=== PATIENT | female | born 1945 | race Caucasian/White ===

== ENCOUNTER 2016-09-02 16:02 | Outpatient (CLI) ==
--- NOTE | 2016-09-02 16:32 | DI ---
EXAM: Three views of the left shoulder HISTORY: Left shoulder pain. COMPARISON: Left humerus x-rays same day and Chest x-ray 08/27/2015 FINDINGS: The left shoulder demonstrates no cortical irregularity or displaced fracture. The glenoh umeral joint is unremarkable. There is degenerative change at the acromioclavicular joint. There i s no lytic or blastic lesion. The adjacent ribs are normal. Soft tissues are unremarkable. IMPRESSION: No acute abnormality or displaced fracture of the left shoulder with degenerative disea se of the acromioclavicular joint.
--- NOTE | 2016-09-02 16:33 | DI ---
EXAM: LEFT HUMERUS, 2 VIEWS HISTORY: Left arm paresthesia FINDINGS: Left humerus AP and lateral views. Bone and joint structures appear normal. No fracture or joint dislocation is seen. There is no significant arthritic change, bone density abnormality o r soft tissue finding. IMPRESSION: No distinct radiographic abnormality identified.
== END 2016-09-02 16:03 | disposition home or self-care (01) ==
LOC: RAD 16:02
PROVIDERS: ATTEND Internal Medicine
DX: M25.512 Pain in left shoulder (principal); S49.92XA Unspecified injury of left shoulder and upper arm, initial encounter

== ENCOUNTER 2017-04-21 08:19 | Outpatient (CLI) ==
--- NOTE | 2017-04-21 09:52 | US ---
EXAM: Abdominal ultrasound limited HISTORY: Increased ALT COMPARISON: Ultrasound 04/21/2017 TECHNIQUE: Sonographic and limited Doppler evaluation of the right upper quadrant was performed. FINDINGS: The liver is increased in echogenicity and measures 13.4 cm. The portal vein is patent. The gallbladder demonstrates no stones or sludge. The gallbladder wall measures 0.3 cm in thickness. Common bile duct is unremarkable and measures 0.4 cm in diameter. The pancreas is unremarkable in a ppearance. The right kidney measures 8.8 x 4.0 x 3.6 centimeters with cortical thickness of 0.7 cm. IMPRESSION: 1. Increased echogenicity of the liver which may represent hepatic steatosis. 2. No additional abnormality is identified.
--- NOTE | 2017-04-21 10:50 | US ---
EXAM: Ultrasound abdomen limited HISTORY: Increased ALT COMPARISON: None FINDINGS: Limited ultrasound abdomen of the spleen was performed. Spleen normal in size and echogen icity measuring 4.0 x 4.1 x 9.8 cm. Left kidney measures 8.9 cm in length without hydronephrosis. IMPRESSION: Normal sonographic appearance of the spleen.
== END 2017-04-21 08:20 | disposition home or self-care (01) ==
LOC: RAD 08:19
PROVIDERS: ATTEND Internal Medicine
DX: R74.0 Nonspecific elevation of levels of transaminase and lactic acid dehydrogenase [LDH] (principal)

== ENCOUNTER 2017-11-20 12:29 | Outpatient (CLI) | payer OTHER ==
--- NOTE | 2017-11-20 13:31 | CT ---
EXAM: CT of the lumbar spine without contrast History: Lower back pain. Technique: Multiplanar CT images through the lumbar spine were obtained without the administration o f IV contrast Findings: Atherosclerotic vascular calcifications. No acute fracture. Mild retrolisthesis of L2 on L3. Moderate to severe disc space narrowing at L1-L 2 with endplate sclerosis and osteophyte formation. Moderate disc space narrowing at L2-L3. Mild di sc space narrowing seen elsewhere. T12-L1: No significant disc bulge, central canal stenosis or bony neural foraminal narrowing. L1-L2: Right paracentral disc protrusion effacing anterior thecal sac with no significant central ca nal stenosis. Moderate right and mild left bony neural foraminal narrowing secondary to ligamentous and facet hypertrophy. L2-L3: Paracentral disc protrusion effacing anterior thecal sac with no significant central canal st enosis. Moderate to severe bilateral bony neural foraminal narrowing secondary to ligamentous and fa cet hypertrophy as well as disc material. L3-L4: Small to modest disc bulge effacing anterior thecal sac with no significant central canal finesse nosis. Moderate bilateral bony neural foraminal narrowing secondary to ligamentous and facet hypertr ophy. L4-L5: Modest disc protrusion effacing anterior thecal sac with mild central canal stenosis. Mild t o moderate bilateral bony neural foraminal narrowing secondary to ligamentous and facet hypertrophy. L5-S1: No significant disc bulge or central canal stenosis. Mild bilateral bony neural foraminal na rrowing secondary to ligamentous and facet hypertrophy. Impression: 1. No acute osseous abnormality of the lumbar spine. 2. Grade 1 retrolisthesis of L2 on L3. 3. Moderate to severe degenerative disc disease at L1-2 and moderate degenerative disc disease at L2 -L3. 4. Level by level analysis as detailed above.
== END 2017-11-20 12:30 | disposition home or self-care (01) ==
LOC: RAD 12:29
PROVIDERS: ATTEND Internal Medicine
DX: M54.5 Low back pain (principal)

== ENCOUNTER 2021-10-11 10:41 | Inpatient (IN) ==
[2021-10-11 10:59] VITALS: BMI 26.0
--- NOTE | 2021-10-11 11:06 | ED.PDOC ---
General ED Provider: Dr. PURVI GLEZ Chief Complaint: Back Pain Stated Complaint: LBP several d, not better, seen at another ED, dx with lumbar spine DDD {CT scan} and UTT, no fever or vomiting, no neuro deficits Time Seen by Provider: 10/11/21 11:06 Mode of Arrival: Ambulance Information Source: Patient Exam Limitations: No limitations Primary Care Provider: MARKUS LOOMIS Nursing and Triage Documentation Reviewed and Agree: Yes Does patient meet sepsis criteria?: No System Inflammatory Response Syndrome: Not Applicable Sepsis Protocol: For patient's 13 years and over: Temp is 96.8 and below OR 101 and greater Pulse >90 BPM Resp >20/minute Acutely Altered Mental Status Are patient's symptoms suggestive of a new infection, such as: -Pneumonia -Skin, Soft Tissue -Endocarditis -UTI -Bone, Joint Infection -Implantable Device -Acute Abdominal Infection -Wound Infection -Meningitis -Blood Stream Catheter Infection -Unknown Musculoskeletal Complaint Exam Back Pain Complaint/Exam Mechanism of Injury: Reports No known trauma Onset/Duration: few d Symptoms Are: Still present Timing: Constant Initial Severity: Moderate Current Severity: Moderate Location: Reports Diffuse Aggravating: Reports Movements Alleviating: Reports None Associated Signs and Symptoms: Reports Flank pain; Denies Swelling, Redness, Bruising, Fever, Weakness, Numbness, Tingling, Abdominal pain, Bladder incontinence, Bowel incontinence, Weight loss or Pain with weight bearing TAD Risk Factors: Reports Hypertension AAA Risk Factors: Reports Hypertension Cauda Equina Risk Factors: Reports None Epidural Abcess Risk Factors: Reports None Related Surgical History: Reports None Focal Tenderness: Yes Paraspinal Muscle Tenderness: Yes Paraspinal Muscle Spasm: No Scoliosis: No Lordosis: No Kyphosis: No SLR Test: Right Negative and Left Negative Focal Weakness: Present None Focal Sensory Loss: Present None Gait: Present Abnormal Review of Systems Review Of Systems Constitutional: Reports No symptoms Eyes: Reports No symptoms Ears, Nose, Mouth, Throat: Reports No symptoms Respiratory: Reports No symptoms Cardiac: Reports No symptoms GI: Reports No symptoms : Reports No symptoms Musculoskeletal: Reports Back pain Skin: Reports No symptoms Neurological: Reports No symptoms Endocrine: Reports No symptoms Hematologic/Lymphatic: Reports No symptoms All Other Systems: Reviewed and Negative [facility] Medical History (Updated 10/11/21 @ 18:27 by BRAYDON SCOTT RN) Arthritis Dysrhythmia GERD (gastroesophageal reflux disease) Hypertension Social History (Updated 10/11/21 @ 16:52 by MAGUE BLAIR RN) Smoking and tobacco status: Former smoker How long ago did patient quit smokin years ago Alcohol intake: current Alcohol intake frequency: a few times a month Alcohol type: wine Substance use type: does not use Do you think of yourself as: straight/heterosexual Current gender identity: female Seatbelt use: always Drives intoxicated or rides with intoxicated line haul driver: No Water heater temperature set < 120 degrees: Yes Working smoke detector in home: Yes Surgical History (Updated 10/11/21 @ 16:50 by MAGUE BLAIR RN) H/O exploratory laparotomy H/O hernia repair Female Reproductive History Menstrual Hx Tubal Ligation: Yes Physical Exam Physical Exam Appearance: Reports Ill-appearing Ill-appearing: Moderate Pain Distress: Moderate Eyes: Reports MELISSA ENT: Reports Oropharynx normal Neck: Supple Respiratory: Reports Airway patent and Breath sounds clear Cardiovascular: Reports RRR and Pulses normal GI/: Reports Soft and Nontender Musculoskeletal: Reports Limited ROM (back) Skin: Reports Warm and Dry Neurological: Reports Sensation intact and Motor intact Psychiatric: Reports Affect appropriate and Mood appropriate Interpretation EKG Interpretation Time of EKG #1: 14:56 Rate: Anish Rhythm: Sinus Ectopy: None Hayes: Left ST Segment: Normal Interpretation: Sinus anish at 51. NSC. Physician Notification Case Discussed Physician Notified: Dr. Loomsi Comments: Admit Admit/Transition Orders Entered by ED Provider: Yes Admit To: Inpatient Critical Care Note Critical Care Note Total Critical Care Time (mins): 0 Course Course Hematology/Chemistry: 10/12/21 05:03 10/12/21 05:03 Orders, Labs, Meds: Lab Review 10/11/21 10/11/21 10/11/21 12:36 12:36 12:36 WBC 11.17 H RBC 4.15 L Hgb 12.9 Hct 38.1 MCV 91.8 MCH 31.1 H MCHC 33.9 RDW Coeff of Liz 13.2 Plt Count 241 Immature Gran % (Auto) 0.5 Neut % (Auto) 77.2 H Lymph % (Auto) 13.0 [place] % (Auto) 8.9 Eos % (Auto) 0.2 Baso % (Auto) 0.2 Neut # (Auto) 8.6 H Lymph # (Auto) 1.5 [place] # (Auto) 1.0 Eos # (Auto) 0.0 Baso # (Auto) 0.0 Immature Gran # (Auto) 0.1 Sodium 139.2 Potassium 3.56 Chloride 106.2 Carbon Dioxide 29.7 Anion Gap 6.86 BUN 15.9 Creatinine 0.90 Estimated GFR (MDRD) 61.00 BUN/Creatinine Ratio 17.66 Glucose 88.1 Calcium 9.07 Magnesium 1.80 Total Bilirubin 0.75 AST 34.8 ALT 18.4 Alkaline Phosphatase 83.5 Total Creatine Kinase Troponin I Total Protein 6.40 Albumin 3.55 Globulin 2.85 Albumin/Globulin Ratio 1.24 Adenovirus (PCR) Not detected B. pertussis DNA (PCR) Not detected B.parapertussis DNA PCR Not detected C. pneumoniae DNA (PCR) Not detected Coronavirus OC43 (PCR) Not detected Coronavirus HKU1 (PCR) Not detected Coronavirus 229E (PCR) Not detected Coronavirus NL63 (PCR) Not detected Human Metapneumovir PCR Not detected Influenza Type A (PCR) Not detected Influenza B (RT-PCR) Not detected M. pneumoniae (PCR) Not detected Parainfluenza 1 (PCR) Not detected Parainfluenza 2 (PCR) Not detected Parainfluenza 3 (PCR) Not detected Parainfluenza 4 (PCR) Not detected RSV (PCR) Not detected Entero/Rhino (PCR) Not detected SARS-CoV-2 (PCR) Not detected 10/11/21 13:00 WBC RBC Hgb Hct MCV MCH MCHC RDW Coeff of Liz Plt Count Immature Gran % (Auto) Neut % (Auto) Lymph % (Auto) [place] % (Auto) Eos % (Auto) Baso % (Auto) Neut # (Auto) Lymph # (Auto) [place] # (Auto) Eos # (Auto) Baso # (Auto) Immature Gran # (Auto) Sodium Potassium Chloride Carbon Dioxide Anion Gap BUN Creatinine Estimated GFR (MDRD) BUN/Creatinine Ratio Glucose Calcium Magnesium Total Bilirubin AST ALT Alkaline Phosphatase Total Creatine Kinase 33.3 Troponin I < 0.012 Total Protein Albumin Globulin Albumin/Globulin Ratio Adenovirus (PCR) B. pertussis DNA (PCR) B.parapertussis DNA PCR C. pneumoniae DNA (PCR) Coronavirus OC43 (PCR) Coronavirus HKU1 (PCR) Coronavirus 229E (PCR) Coronavirus NL63 (PCR) Human Metapneumovir PCR Influenza Type A (PCR) Influenza B (RT-PCR) M. pneumoniae (PCR) Parainfluenza 1 (PCR) Parainfluenza 2 (PCR) Parainfluenza 3 (PCR) Parainfluenza 4 (PCR) RSV (PCR) Entero/Rhino (PCR) SARS-CoV-2 (PCR) Orders Category Date Time Status ADMIT PATIENT [facility]PAT[facility] ADMISSION 10/11/21 14:46 Active EKG-(IP & OP ONLY) DAILY CARDIO 10/12/21 06:00 Completed EKG-(IP & OP ONLY) DAILY CARDIO 10/13/21 06:00 Ordered EKG-(IP & OP ONLY) Stat CARDIO 10/11/21 14:42 Completed OXYGEN Routine CARDIO 10/11/21 14:42 Active ACTIVITY .BR with BRP CARE 10/11/21 14:42 Active IP: INSERT SALINE LOCK ONCE CARE 10/11/21 14:42 Active TELEMETRY MONITORING TELE CARE 10/11/21 14:46 Active VITAL SIGNS Q4HR CARE 10/11/21 14:42 Active CARDIAC DIET DIETARY 10/11/21 Dinner Ordered ED IV/MEDIPORT/POWERPORT .ONCE EMERGENCY 10/11/21 12:22 Active CBC W/ AUTO DIFF Stat LAB 10/11/21 12:36 Completed CBC W/ AUTO DIFF Stat LAB 10/12/21 05:03 Completed COMPREHENSIVE METABOLIC PANEL Stat LAB 10/11/21 12:36 Completed COMPREHENSIVE METABOLIC PANEL Stat LAB 10/12/21 05:03 Completed CREATINE KINASE Q8H LAB 10/11/21 13:00 Completed CREATINE KINASE Q8H LAB 10/11/21 22:24 Completed MAGNESIUM Stat LAB 10/11/21 12:36 Completed RESPIRATORY PANEL 2.1 (PCR) Stat LAB 10/11/21 12:36 Completed TROPONIN I Q8H LAB 10/11/21 13:00 Completed TROPONIN I Q8H LAB 10/11/21 22:24 Completed URINALYSIS C & S IF INDICATED Stat LAB 10/11/21 15:25 Completed 0.9 % Sodium Chloride [Saline Flush] MEDS 10/11/21 21:00 Active 1 syr IVF Q8HR Acetaminophen [Tylenol] MEDS 10/11/21 14:42 Active 650 mg PO Q4H PRN Atropine Sulfate Inj [Atropine Sulfate Pfs] MEDS 10/11/21 14:42 Active 0.5 mg IVP ONCE PRN Ceftriaxone/D5w 1 gm Premix [Rocephin 1 gm/50 ml D5w] MEDS 10/11/21 15:00 Active 1 gm in 50 ml IV DAILY Dexamethasone Sod Phosphate [Decadron] MEDS 10/12/21 09:00 Once 4 mg IVP ONCE ONE Dexamethasone Sod Phosphate [Decadron] MEDS 10/11/21 15:00 Discontinued 4 mg IVP ONCE STA Hydromorphone HCl [Dilaudid 1 mg/ml Syringe] MEDS 10/11/21 11:17 Discontinued 1 mg IM ONCE ONE Ketorolac Tromethamine [Toradol] MEDS 10/11/21 15:00 Discontinued 30 mg IVP ONCE ONE Ketorolac Tromethamine [Toradol] MEDS 10/11/21 21:00 Active 30 mg IVP QID PRN Nitroglycerin [Nitrostat] MEDS 10/11/21 14:42 Active 0.4 mg SL Q5MIN X 3 DOSES PRN Promethazine HCl [Phenergan 25 mg/ml Vial] MEDS 10/11/21 11:17 Discontinued 25 mg IM ONCE ONE Sodium Chloride 0.9% [Sodium Chloride] 1,000 ml MEDS 10/11/21 15:00 Discontinued IV 75 mls/hr CHEST, 1V AP ONLY Stat RADS 10/11/21 14:42 Completed Medications Generic Name Dose Route Start Last Admin Trade Name Freq PRN Reason Stop Dose Admin Acetaminophen 650 mg 10/11/21 14:42 Acetaminophen 325 Mg Tablet PO Q4H PRN Headache Aspirin 81 mg 10/12/21 08:30 Aspirin 81 Mg Tab.Chew PO DAILYWM AGATHA Atorvastatin Calcium 40 mg 10/12/21 09:00 Atorvastatin Calcium 20 Mg Tablet PO DAILY AGATHA Atropine Sulfate 0.5 mg 10/11/21 14:42 Atropine Sulfate Inj 1 Mg/10 Ml Disp.Syrin IVP ONCE PRN Symptomatic Bradycardia Citalopram Hydrobromide 20 mg 10/12/21 09:00 Citalopram Hydrobromide 20 Mg Tablet PO DAILY AGATHA Clonazepam 0.5 mg 10/11/21 16:40 Clonazepam 0.5 Mg Tablet PO BID PRN Anxiety Dexamethasone Sodium Phosphate 4 mg 10/12/21 09:00 Dexamethasone Sod Phos 4 Mg/Ml Inj IVP 10/12/21 09:01 ONCE ONE CEFTRIAXONE/D5W 1 GM PREMIX 1 gm in 50 mls @ 75 mls/hr 10/11/21 15:00 10/11/21 15:11 Rocephin 1 Gm/50 Ml D5w IV 10/14/21 14:59 75 mls/hr DAILY AGATHA Administration Ketorolac Tromethamine 30 mg 10/11/21 21:00 10/12/21 02:36 Ketorolac Tromethamine 30 Mg/Ml Vial IVP 30 mg QID PRN Administration Pain Losartan Potassium 100 mg 10/12/21 09:00 Losartan Potassium 100 Mg Tablet PO DAILY AGATHA Nitroglycerin 0.4 mg 10/11/21 14:42 Nitroglycerin 0.4 Mg Tab.Subl SL Q5MIN X 3 DOSES PRN Chest Pain Omeprazole 20 mg 10/12/21 06:30 10/12/21 05:43 Omeprazole 20 Mg Capsule.Dr PO 20 mg QDAC AGATHA Administration Ondansetron HCl 4 mg 10/11/21 16:40 10/12/21 02:42 Ondansetron Hcl 4 Mg Tab.Rapdis PO 4 mg Q8H PRN Administration Nausea / Vomiting Sodium Chloride 1 syr 10/11/21 21:00 10/12/21 05:44 0.9% Sodium Chloride 10 Ml Disp.Syrin IVF 1 syr Q8HR AGATHA Administration Tizanidine HCl 4 mg 10/11/21 16:48 10/12/21 02:36 Tizanidine Hcl 4 Mg Tablet PO 4 mg Q8H PRN Administration Spasms Tramadol HCl 50 mg 10/11/21 16:40 Tramadol Hcl 50 Mg Tablet PO BID PRN Pain Discontinued Medications Generic Name Dose Route Start Last Admin Trade Name Freq PRN Reason Stop Dose Admin Dexamethasone Sodium Phosphate 4 mg 10/11/21 15:00 10/11/21 15:11 Dexamethasone Sod Phos 4 Mg/Ml Inj IVP 10/11/21 15:01 4 mg ONCE STA Administration Hydromorphone HCl 1 mg 10/11/21 11:17 10/11/21 11:29 Hydromorphone Hcl 1 Mg/Ml Syringe IM 10/11/21 11:18 1 mg ONCE ONE Administration Sodium Chloride 1,000 mls @ 75 mls/hr 10/11/21 15:00 10/11/21 15:11 Sodium Chloride IV 10/12/21 04:19 75 mls/hr .[id number] STA Administration Ketorolac Tromethamine 30 mg 10/11/21 15:00 10/11/21 15:11 Ketorolac Tromethamine 30 Mg/Ml Vial IVP 10/11/21 15:01 30 mg ONCE ONE Administration Promethazine HCl 25 mg 10/11/21 11:17 10/11/21 11:27 Promethazine Inj 25 Mg/Ml IM 10/11/21 11:18 25 mg ONCE ONE Administration Vital Signs: Temp Pulse Resp BP Pulse Ox 10/11/21 10:49 97.3 F L 50 L 18 154/80 H 98 Discharge Plan Discharge Patient Disposition: ADMITTED INPATIENT Discharge Problem: UTI (urinary tract infection) ED Provider: PURVI GLEZ Condition: Fair Physician Progress Note: [] Admit per Dr. Loomis. Pyelo and lumbar DDD. Did not need to repeat imaging, CT at other ED.
[2021-10-11] MEDS ORDERED: PHENERGAN 25 MG/ML VIAL IM ONE (11:17)
[2021-10-11] MEDS ORDERED: DILAUDID 1 MG/ML SYRINGE IM ONE (11:17)
[2021-10-11 12:40] LABS: BASOPHILS % (AUTO) 0.2 % (0.0-3.0); EOSINOPHILS % (AUTO) 0.2 % (0.0-7.0); HEMATOCRIT 38.1 % (37.0-47.0); HEMOGLOBIN 12.9 g/dl (12.0-16.0); IMMATURE GRANULOCYTE # (AUTO) 0.1 (0.0-1.0); IMMATURE GRANULOCYTE % (AUTO) 0.5 % (0.0-5.0); LYMPHOCYTES # (AUTO) 1.5 K/uL (0.60-3.4); MEAN CORPUSCULAR HEMOGLOBIN 31.1 pg (27.0-31.0); MEAN CORPUSCULAR HGB CONC 33.9 (31.8-35.4); MEAN CORPUSCULAR VOLUME 91.8 fl (81.0-99.0); MONOCYTES % (AUTO) 8.9 (0-10); NEUTROPHILS # (AUTO) 8.6 K/ul (2.0-6.9); NEUTROPHILS % (AUTO) 77.2 % (42.2-75.2); PLATELET COUNT 241 10^3/uL (140-440); RDW COEFFICIENT OF VARIATION 13.2 % (11.6-14.8); RED BLOOD COUNT 4.15 10^6/ul (4.20-5.40); WHITE BLOOD COUNT 11.17 K/ul (4.6-10.2)
[2021-10-11 12:42] LABS: BORDETELLA PARAPERTUSSIS (PCR) NOT DETECTED (NOT DETECT); BORDETELLA PERTUSSIS (PCR) NOT DETECTED (NOT DETECT); CHLAMYDIA PNEUMONIAE (PCR) NOT DETECTED (NOT DETECT); CORONAVIRUS 229E (PCR) NOT DETECTED (NOT DETECT); CORONAVIRUS HKU1 (PCR) NOT DETECTED (NOT DETECT); CORONAVIRUS NL63 (PCR) NOT DETECTED (NOT DETECT); CORONAVIRUS OC43 (PCR) NOT DETECTED (NOT DETECT); HUMAN METAPNEUMOVIRUS (PCR) NOT DETECTED (NOT DETECT); HUMAN RHINOVIRUS/ENTEROV (PCR) NOT DETECTED (NOT DETECT); INFLUENZA B (PCR) NOT DETECTED (NOT DETECT); MYCOPLASMA PNEUMONIAE (PCR) NOT DETECTED (NOT DETECT); PARAINFLUENZA VIRUS 1 (PCR) NOT DETECTED (NOT DETECT); PARAINFLUENZA VIRUS 2 (PCR) NOT DETECTED (NOT DETECT); PARAINFLUENZA VIRUS 3 (PCR) NOT DETECTED (NOT DETECT); PARAINFLUENZA VIRUS 4 (PCR) NOT DETECTED (NOT DETECT); RESPIRATORY SYNCYTIAL V (PCR) NOT DETECTED (NOT DETECT); SARS_COV_2 (PCR) NOT DETECTED (NOT DETECT)
[2021-10-11 13:27] LABS: ADENOVIRUS (PCR) NOT DETECTED (NOT DETECT)
[2021-10-11 13:37] LABS: ALANINE AMINOTRANSFERASE 18.4 U/L (0-35); ALBUMIN 3.55 g/dL (3.5-5.0); ALKALINE PHOSPHATASE 83.5 U/L (53-141); ASPARTATE AMINO TRANSFERASE 34.8 U/L (14-36); BILIRUBIN,TOTAL 0.75 mg/dL (0.2-1.3); BLOOD UREA NITROGEN 15.9 mg/dL (7-17); CALCIUM 9.07 mg/dL (8.4-10.2); CARBON DIOXIDE 29.7 mmol/L (22-30.0); CHLORIDE 106.2 mmol/L (98-107); CREATININE 0.9 mg/dL (0.60-1.30); GLUCOSE 88.1 mg/dL (74-106); MAGNESIUM 1.8 mg/dL (1.6-2.3); POTASSIUM 3.56 mmol/L (3.5-5.1); SODIUM 139.2 mmol/L (134.5-145); TOTAL PROTEIN 6.4 g/dL (6.3-8.2)
[2021-10-11] MEDS ORDERED: NITROSTAT SL PRN (14:42)
[2021-10-11] MEDS ORDERED: ATROPINE SULFATE PFS IVP PRN (14:42)
[2021-10-11] MEDS ORDERED: TYLENOL PO PRN (14:42)
[2021-10-11 14:59] LABS: CREATINE KINASE 33.3 U/L (30-135)
[2021-10-11] MEDS ORDERED: DECADRON IVP STA (15:00)
[2021-10-11] MEDS ORDERED: SODIUM CHLORIDE 1,000 ML IV STA (15:00)
[2021-10-11] MEDS ORDERED: TORADOL IVP ONE (15:00)
[2021-10-11] MEDS: ROCEPHIN 1 GM/50 ML D5W 1 GM/50 ML BAG IV SCH (15:11)
[2021-10-11 15:15] LABS: TROPONIN I < 0.012 ng/ml (0.0000-0.120)
--- NOTE | 2021-10-11 15:24 | DI ---
EXAM: Chest one view HISTORY: Dyspnea COMPARISON: 01/11/2020 TECHNIQUE: Single view of the chest was performed FINDINGS: No airspace consolidation. Granulomas calcification. There is no pleural effusion or pne umothorax. The heart is normal in size. The mediastinal contour is normal, noting atherosclerosis. . There are no acute abnormalities of the bones. IMPRESSION: No acute cardiopulmonary process.
[2021-10-11 15:35] LABS: BILIRUBIN,URINE Negative (NEGATIVE); CLARITY,URINE Clear (CLEAR); COLOR,URINE Yellow (YELLOW); GLUCOSE, URINE (UA) Negative (NEGATIVE); KETONES,URINE Negative (NEGATIVE); LEUKOCYTE ESTERASE ,URINE 1+ (NEGATIVE); NITRITE,URINE Negative (NEGATIVE); PH,URINE 5.5 (5-9); PROTEIN,URINE Negative (NEGATIVE); URINE, BLOOD Negative (NEGATIVE); UROBILINOGEN,URINE 0.2 (0.2)
[2021-10-11 15:38] LABS: URINE RBC, MICROSCOPIC 0-2 (0-2); URINE WBC, MICROSCOPIC 20-30 (0-2)
[2021-10-11 15:39] LABS: BACTERIA,URINE TRACE (NOT PRESENT)
[2021-10-11] MEDS ORDERED: KLONOPIN PO PRN (16:40)
[2021-10-11] MEDS ORDERED: NON-FORMULARY MEDICATION (Tizanidine 4 mg Capsule) PO PRN (16:40)
[2021-10-11] MEDS ORDERED: ZOFRAN ODT PO PRN (16:40)
[2021-10-11] MEDS ORDERED: NORCO 5-325 PO PRN (16:40)
[2021-10-11 23:11] LABS: CREATINE KINASE 25.2 U/L (30-135)
[2021-10-11 23:33] LABS: TROPONIN I < 0.012 ng/ml (0.0000-0.120)
[2021-10-12] MEDS: TORADOL IVP PRN ×4 (02:36→20:22)
[2021-10-12] MEDS: ZANAFLEX PO PRN ×2 (02:36→17:31)
[2021-10-12] MEDS: PRILOSEC PO SCH (05:43)
[2021-10-12 05:50] LABS: BASOPHILS % (AUTO) 0.2 % (0.0-3.0); EOSINOPHILS % (AUTO) 0.1 % (0.0-7.0); HEMATOCRIT 40.1 % (37.0-47.0); HEMOGLOBIN 13.3 g/dl (12.0-16.0); IMMATURE GRANULOCYTE % (AUTO) 0.4 % (0.0-5.0); LYMPHOCYTES # (AUTO) 1.7 K/uL (0.60-3.4); LYMPHOCYTES % (AUTO) 17.2 (10.0-50.0); MEAN CORPUSCULAR HEMOGLOBIN 30.7 pg (27.0-31.0); MEAN CORPUSCULAR HGB CONC 33.2 (31.8-35.4); MEAN CORPUSCULAR VOLUME 92.6 fl (81.0-99.0); MONOCYTES # (AUTO) 0.7 K/uL (0.4-2.0); MONOCYTES % (AUTO) 6.8 (0-10); NEUTROPHILS # (AUTO) 7.3 K/ul (2.0-6.9); NEUTROPHILS % (AUTO) 75.3 % (42.2-75.2); PLATELET COUNT 226 10^3/uL (140-440); RDW COEFFICIENT OF VARIATION 12.8 % (11.6-14.8); RED BLOOD COUNT 4.33 10^6/ul (4.20-5.40); WHITE BLOOD COUNT 9.73 K/ul (4.6-10.2)
[2021-10-12 05:59] LABS: ALANINE AMINOTRANSFERASE 17.5 U/L (0-35); ALBUMIN 3.59 g/dL (3.5-5.0); ALKALINE PHOSPHATASE 83.5 U/L (53-141); ASPARTATE AMINO TRANSFERASE 33.5 U/L (14-36); BILIRUBIN,TOTAL 0.67 mg/dL (0.2-1.3); BLOOD UREA NITROGEN 15.9 mg/dL (7-17); CALCIUM 9.12 mg/dL (8.4-10.2); CHLORIDE 106.8 mmol/L (98-107); CREATININE 0.83 mg/dL (0.60-1.30); POTASSIUM 3.94 mmol/L (3.5-5.1); SODIUM 138.7 mmol/L (134.5-145); TOTAL PROTEIN 6.55 g/dL (6.3-8.2)
[2021-10-12] MEDS: COZAAR PO SCH (08:52)
[2021-10-12] MEDS: ASPIRIN CHEWABLE PO SCH (08:52)
[2021-10-12] MEDS: LIPITOR PO SCH (08:52)
[2021-10-12] MEDS: ROCEPHIN 1 GM/50 ML D5W 1 GM/50 ML BAG IV SCH (08:52)
[2021-10-12] MEDS: CELEXA PO SCH (08:52)
[2021-10-12] MEDS ORDERED: DECADRON IVP ONE (09:00)
[2021-10-12 13:12] LABS: ERYTHROCYTE SEDIMENTATION RATE 30 mm/hr (0-20)
[2021-10-12] MEDS: VALIUM PO SCH ×2 (13:53→21:39)
[2021-10-12] MEDS: ULTRAM PO PRN (17:31)
[2021-10-12] MEDS: PROTONIX PO SCH (17:31)
[2021-10-13 05:21] LABS: BASOPHILS % (AUTO) 0.2 % (0.0-3.0); EOSINOPHILS # (AUTO) 0.1 K/ul (0.0-0.7); EOSINOPHILS % (AUTO) 0.7 % (0.0-7.0); HEMATOCRIT 39.5 % (37.0-47.0); HEMOGLOBIN 13.3 g/dl (12.0-16.0); IMMATURE GRANULOCYTE % (AUTO) 0.3 % (0.0-5.0); LYMPHOCYTES # (AUTO) 2.5 K/uL (0.60-3.4); LYMPHOCYTES % (AUTO) 27.5 (10.0-50.0); MEAN CORPUSCULAR HEMOGLOBIN 30.6 pg (27.0-31.0); MEAN CORPUSCULAR HGB CONC 33.7 (31.8-35.4); MEAN CORPUSCULAR VOLUME 90.8 fl (81.0-99.0); MONOCYTES # (AUTO) 0.8 K/uL (0.4-2.0); MONOCYTES % (AUTO) 8.9 (0-10); NEUTROPHILS # (AUTO) 5.8 K/ul (2.0-6.9); NEUTROPHILS % (AUTO) 62.4 % (42.2-75.2); PLATELET COUNT 216 10^3/uL (140-440); RDW COEFFICIENT OF VARIATION 12.8 % (11.6-14.8); RED BLOOD COUNT 4.35 10^6/ul (4.20-5.40); WHITE BLOOD COUNT 9.23 K/ul (4.6-10.2)
[2021-10-13 05:38] LABS: ALANINE AMINOTRANSFERASE 17.7 U/L (0-35); ALBUMIN 3.51 g/dL (3.5-5.0); ALKALINE PHOSPHATASE 75.6 U/L (53-141); BILIRUBIN,TOTAL 0.8 mg/dL (0.2-1.3); CALCIUM 9.03 mg/dL (8.4-10.2); CARBON DIOXIDE 33.2 mmol/L (22-30.0); CHLORIDE 103.5 mmol/L (98-107); CREATININE 0.87 mg/dL (0.60-1.30); GLUCOSE 96.2 mg/dL (74-106); SODIUM 137.7 mmol/L (134.5-145); TOTAL PROTEIN 6.48 g/dL (6.3-8.2)
[2021-10-13] MEDS: PRILOSEC PO SCH (05:52)
[2021-10-13] MEDS: PROTONIX PO SCH ×2 (05:52→17:38)
[2021-10-13] MEDS: VALIUM PO SCH ×2 (08:32→21:28)
[2021-10-13] MEDS: LIPITOR PO SCH (08:32)
[2021-10-13] MEDS: TORADOL IVP PRN ×2 (08:32→15:58)
[2021-10-13] MEDS: COZAAR PO SCH (08:32)
[2021-10-13] MEDS: CELEXA PO SCH (08:33)
[2021-10-13] MEDS: ASPIRIN CHEWABLE PO SCH (08:33)
[2021-10-13] MEDS: DECADRON IVP SCH (08:33)
[2021-10-13] MEDS: ROCEPHIN 1 GM/50 ML D5W 1 GM/50 ML BAG IV SCH (08:35)
[2021-10-13] MEDS: K-DUR PO SCH ×2 (13:22→17:38)
[2021-10-13] MEDS: ZANAFLEX PO PRN (16:30)
[2021-10-14] MEDS: ZANAFLEX PO PRN ×2 (04:17→13:55)
[2021-10-14] MEDS: TORADOL IVP PRN ×3 (04:17→21:02)
[2021-10-14] MEDS: ULTRAM PO PRN (05:25)
[2021-10-14 05:39] LABS: BASOPHILS % (AUTO) 0.2 % (0.0-3.0); EOSINOPHILS # (AUTO) 0.1 K/ul (0.0-0.7); EOSINOPHILS % (AUTO) 1.2 % (0.0-7.0); HEMATOCRIT 39.3 % (37.0-47.0); HEMOGLOBIN 13.3 g/dl (12.0-16.0); IMMATURE GRANULOCYTE % (AUTO) 0.3 % (0.0-5.0); LYMPHOCYTES # (AUTO) 2.5 K/uL (0.60-3.4); LYMPHOCYTES % (AUTO) 26.3 (10.0-50.0); MEAN CORPUSCULAR HEMOGLOBIN 30.8 pg (27.0-31.0); MEAN CORPUSCULAR HGB CONC 33.8 (31.8-35.4); MONOCYTES # (AUTO) 0.6 K/uL (0.4-2.0); MONOCYTES % (AUTO) 6.8 (0-10); NEUTROPHILS # (AUTO) 6.2 K/ul (2.0-6.9); NEUTROPHILS % (AUTO) 65.2 % (42.2-75.2); PLATELET COUNT 238 10^3/uL (140-440); RDW COEFFICIENT OF VARIATION 12.7 % (11.6-14.8); RED BLOOD COUNT 4.32 10^6/ul (4.20-5.40); WHITE BLOOD COUNT 9.44 K/ul (4.6-10.2)
[2021-10-14 05:53] LABS: ALANINE AMINOTRANSFERASE 17.6 U/L (0-35); ALBUMIN 3.45 g/dL (3.5-5.0); ALKALINE PHOSPHATASE 86.3 U/L (53-141); ASPARTATE AMINO TRANSFERASE 34.1 U/L (14-36); BILIRUBIN,TOTAL 0.72 mg/dL (0.2-1.3); BLOOD UREA NITROGEN 16.7 mg/dL (7-17); CALCIUM 9.17 mg/dL (8.4-10.2); CARBON DIOXIDE 29.4 mmol/L (22-30.0); CHLORIDE 106.2 mmol/L (98-107); CREATININE 0.89 mg/dL (0.60-1.30); GLUCOSE 88.8 mg/dL (74-106); POTASSIUM 3.65 mmol/L (3.5-5.1); SODIUM 137.4 mmol/L (134.5-145); TOTAL PROTEIN 6.46 g/dL (6.3-8.2)
[2021-10-14] MEDS: PROTONIX PO SCH ×2 (05:54→17:35)
[2021-10-14] MEDS: PRILOSEC PO SCH (05:55)
--- NOTE | 2021-10-14 09:02 | PCM.PROG ---
Attending Provider: ATTENDING PROVIDER: Dr. MARKUS ESTRELLA This patient is seen with Emily Archer, Nurse Practitioner. DATE OF SERVICE: 10/14/21 SUBJECTIVE: This 75 year old /WHITE F was hospitalized 10/11/21. Has been having pain off and on from right flank now across back seem to come in waves like spasms. REVIEW OF SYSTEMS: CONSTITUTIONAL: No night sweats. No fatigue, malaise, lethargy. No fever or chills. Weaknss. HEENT: Eyes: No visual changes. No eye pain. No eye discharge. ENT: No runny nose. No epistaxis. No sinus pain. No odynophagia. No congestion. RESPIRATORY: No cough, no congestion. No hemoptysis. No shortness of breath. CARDIOVASCULAR: No angina symptoms. No CHF symptoms. No atypical chest pain for CAD. No palpitations. No orthopnea.. GASTROINTESTINAL: No abdominal pain. No nausea or vomiting. No diarrhea or constipation. No hematemesis. No hematochezia. GENITOURINARY: No urgency. No frequency. Dysuria. No hematuria. No obstructive symptoms. No discharge. No pain. No significant abnormal bleeding. MUSCULOSKELETAL: No musculoskeletal pain; no joint swelling. Low back pain. NEUROLOGICAL: Awake, alert, oriented to time, place and person. No headache. No neck pain. No syncope. No seizures. No dizziness. PSYCHIATRIC: Not anxious. No depression. No suicidal thoughts. No homicidal thoughts. SKIN: No rash. No lesions. No wounds. ENDOCRINE: No unexplained weight loss. No weight gain. HEMATOLOGIC/LYMPHATIC: No anemia. No purpura. No petechiae. No prolonged or excessive bleeding. No palpable lymph nodes. PHYSICAL EXAMINATION: GENERAL: The patient is awake, alert and oriented, lying in bed in no distress. VITAL SIGNS: Temperature 97.7 F, Pulse 44, Respiratory Rate 16, BP 162/77, Pulse Ox 98% HEENT: Head normocephalic, atraumatic. Eyes: Extraocular muscles are intact. Pupils are equal, round and reactive to light and accommodation. Ears: No lesions. Nose appeared normal. Throat: No exudate or erythema. NECK: Supple. No JVD, no carotid bruit. No lymphadenopathy or thyromegaly. LUNGS: Diminished breath sounds. Clear to auscultation. Percussion note normal. Chest symmetrical. HEART: S1, S2, no S3. No murmurs. No cyanosis or clubbing. No ascites. Pulses: Dorsalis pedis and posterior tibial pulses +1 to +2 both sides. ABDOMEN: Soft. Non-tender. Bowel sounds active. No CVA tenderness. No mass felt. EXTREMITIES: No edema. Full range of motion of all extremities, equal. NEUROLOGIC: No focal deficit. Cranial nerves II through XII are grossly intact. No headache. No double vision. SKIN: Not dry. Intact. Turgor-normal. LYMPHATIC: No palpable lymph nodes/no lymphedema. MUSCULOSKELETAL: Normal joints with no swelling. Muscle tone is normal. Generalized low back pain. LAB REVIEW: 10/14/21 05:06 10/14/21 05:06 10/14/21 05:06: Sodium 137.4, Potassium 3.65, Chloride 106.2, Carbon Dioxide 29.4, Anion Gap 5.45, BUN 16.7, Creatinine 0.89, Estimated GFR (MDRD) 62.00, BUN/Creatinine Ratio 18.76, Glucose 88.8, Calcium 9.17, Total Bilirubin 0.72, AST 34.1, ALT 17.6, Alkaline Phosphatase 86.3, Total Protein 6.46, Albumin 3.45 L, Globulin 3.01, Albumin/Globulin Ratio 1.14 10/14/21 05:06: WBC 9.44, RBC 4.32, Hgb 13.3, Hct 39.3, MCV 91.0, MCH 30.8, MCHC 33.8, RDW Coeff of Liz 12.7, Plt Count 238, Immature Gran % (Auto) 0.3, Neut % (Auto) 65.2, Lymph % (Auto) 26.3, [place] % (Auto) 6.8, Eos % (Auto) 1.2, Baso % (Auto) 0.2, Neut # (Auto) 6.2, Lymph # (Auto) 2.5, [place] # (Auto) 0.6, Eos # (Auto) 0.1, Baso # (Auto) 0.0, Immature Gran # (Auto) 0.0 ASSESSMENT: Please see below. 1. Acute low back pain 2. UTI 3. Lumbar spasm 4. Nausea 5. Hypertension PLAN: 1. Norvasc 5mg BID 2. Will get records from [facility] 3. CT abdomen and pelvis with and without 4. CT L spine without. Plan and coordination of the patient's care discussed in the presence of Meal Temperer and nurse. SCRIBED BY: Krystal GAFFNEY scribed while in presence of service performed by Dr. Estrella/Emily Archer APRN on 10/14/21 ([id number])
[2021-10-14] MEDS: ROCEPHIN 1 GM/50 ML D5W 1 GM/50 ML BAG IV SCH (09:17)
[2021-10-14] MEDS: DECADRON IVP SCH (09:17)
[2021-10-14] MEDS: CELEXA PO SCH (10:01)
[2021-10-14] MEDS: K-DUR PO SCH ×2 (10:01→17:35)
[2021-10-14] MEDS: ASPIRIN CHEWABLE PO SCH (10:01)
[2021-10-14] MEDS: COZAAR PO SCH (10:02)
[2021-10-14] MEDS: LIPITOR PO SCH (10:02)
[2021-10-14] MEDS: VALIUM PO SCH (10:02)
[2021-10-14] MEDS: NORVASC PO SCH ×2 (10:10→20:59)
--- NOTE | 2021-10-14 11:06 | HP ---
DATE OF SERVICE: 10/11/21 REASON FOR HOSPITALIZATION: Pain and acute pyelonephritis HISTORY OF PRESENT ILLNESS: 75 year old white female was seen in the emergency room after she was seen by [facility] ER on 10/09/21 with spinal lumbar back pain. The patient also had history of ureteral obstruction secondary to scar tissue requiring stent placement and surgery. The patient has history of worsening of the right paraspinus lumbar back pain. The patient at that time underwent CT scan of the lumbar spine which showed moderate facet hypertrophy, DJD of the L spine. Scan of the abdomen showed normal noncontrast appearance of liver, gallbladder, pancreatitis, spleen adrenal glands and kidney. Bowel obstruction, mild lumbar scoliosis. DJD was noted on examination of CT of the abdomen and pelvis. The patient was put on antiinflammatory and muscle relaxant, Lidoderm patches were given to her and was sent home. The patient was also noted to have abnormal U/A which grew Klebsiella and the patient was sent home on Omnicef. Culture reports were available to the ER physician at [place] which showed Klebsiella which was sensitive to all antibiotics except for penicillin. PAST MEDICAL HISTORY/PAST SURGICAL HISTORY: DJD of the lumbar spine. History of ureteral extent. Scar tissue with history of hyponephrosis followed by urologist History of PVC Left carotid stenosis 50-70% Dyslipidemia Chronic kidney disease stage I/II History of osteoporosis refuses Dexa Scan July 2019 PVC 7% of the beat scan Holter with two episodes of V-tach consisting of 7 beats asymptomatic. History of hypertension Family history of heart attack, mother REVIEW OF SYSTEMS: CONSTITUTIONAL: No night sweats. Fatigue and weakness. No fever or chills. HEENT: Eyes: No visual changes. No eye pain. No eye discharge. ENT: No runny nose. No epistaxis. No sinus pain. No sore throat. No odynophagia. No ear pain. No congestion. RESPIRATORY: No cough, no congestion. No hemoptysis. No shortness of breath. CARDIOVASCULAR: No angina symptoms. No CHF symptoms. No atypical chest pain for CAD. No palpitations. No PND. No orthopnea. GASTROINTESTINAL: No abdominal pain. No nausea or vomiting. No diarrhea or constipation. No hematemesis. No hematochezia. GENITOURINARY: No urgency. No frequency. No dysuria. No hematuria. No obstructive symptoms. No discharge. No pain. No significant abnormal bleeding. MUSCULOSKELETAL: No musculoskeletal pain. No joint swelling. No arthritis. Lower back pain. NEUROLOGICAL: No headache. No neck pain. No syncope. No seizures. No dizziness. PSYCHIATRIC: Not anxious. No depression. No suicidal thoughts. No homicidal thoughts. SKIN: No rash. No lesions. No wounds. ENDOCRINE: No unexplained weight loss. No weight gain. HEMATOLOGIC/LYMPHATIC: No anemia. No purpura. No petechiae. No prolonged or excessive bleeding. No palpable lymph nodes. MEDICATIONS: Citalopram 20mg PO daily Losartan 100mg PO daily Atorvastatin 40mg PO daily Clonzepam 0.5mg PO BID PRN Ondansetron 4mg PO PRN [place] 5-325 PO Q 6 hours PRN Ultram 50mg PO BID PRN Protonix 20mg PO daily Tizanidine 4mg PO PRN Cefdinir 300mg PO as directed Aspirin 81mg PO daily ALLERGIES: Penicillin PHYSICAL EXAMINATION: VITAL SIGNS: Temperature 98.6, pulse 70, respiratory rate 15, blood pressure 138/70 and pulse ox 97% on room air. HEENT: Head normocephalic, atraumatic. Eyes: Extraocular muscles are intact. Pupils are equal, round and reactive to light and accommodation. Ears: No lesions. Nose appeared normal. Throat: No exudate or erythema. NECK: Supple. No JVD, no carotid bruit. No lymphadenopathy or thyromegaly. LUNGS: Decreased breath sounds but clear to auscultation. Percussion note normal. Chest symmetrical. HEART: S1, S2, no S3. No murmur. No cyanosis or clubbing. No ascites. Pulses: Dorsalis pedis and posterior tibial pulses +1 to +2 bilaterally. ABDOMEN: Soft. Nontender. Bowel sounds active. No CVA tenderness. No mass felt. EXTREMITIES: No edema. Full range of motion of all extremities, equal. NEUROLOGIC: No focal deficit. Cranial nerves II through XII are grossly intact. No headache, no double vision or headache. SKIN: Not dry. Intact. Turgor - normal. LYMPHATIC: No palpable lymph nodes/no lymphedema. MUSCULOSKELETAL: Normal joints with no swelling. Muscle tone is normal. The patient was in pain with the lower back. LABS: GFR 61 cc per minute, COVID test Negative. Troponin negative. EKG sinus bradycardia with possibility of WPW preexcitation syndrome. ASSESSMENT: 1. Acute pyelonephritis or UTI with Klebsiella sensitive to all antibiotics except for Penicillin 2. Dehydration 3. Severe lumbar muscle spasm 4. DJD of the lumbar spine. 5. History of ureteral extent. Scar tissue with history of hyponephrosis followed by urologist 6. History of PVC 7. Left carotid stenosis 50-70% 8. Dyslipidemia 9. Chronic kidney disease stage I/II 10.History of osteoporosis refuses Dexa Scan 11.July 2019 PVC 7% of the beat scan Holter with two episodes of V-tach consisting of 7 beats asymptomatic. 12.History of hypertension 13.Family history of heart attack, mother PLAN: 1. Start Rocephin every 24 hours 2. IV fluids 3. Telemetry 4. Toradol IV along with steroids 5. Back exercises discussed 6. History of smoking, now she is vaping 7. Chronic obstructive lung disease will also end up doing PFT 8. The patient is fully vaccinated with COVID 19 with booster. TIME SPENT: More than 70 minutes. MTDD
--- NOTE | 2021-10-14 11:08 | CT ---
EXAM: CT lumbar spine without contrast. HISTORY: Back pain COMPARISON: Same day CT abdomen pelvis and CT abdomen pelvis 04/09/2021 TECHNIQUE: Serial axial images of the spine were obtained from the lower thoracic spine through the pelvis without contrast. These were viewed in multiple planes. FINDINGS: Vertebral bodies demonstrate no acute compression fracture. There is 0.2 cm of retrolisth esis of L1 on L2 and 0.3 cm of retrolisthesis of L2 on L3. There are few scattered anterior disc ost eophytes. There is moderate facet arthropathy. There is multilevel facet arthropathy and broad-based disc bulges. There is mild to moderate neural foraminal narrowing noted at L2-L3. Limited views of the soft tissues are unremarkable. There is calcific atherosclerotic disease. IMPRESSION: 1. No acute compression fracture with grade 1 retrolisthesis of L1 on L2 and L2-L3. 2. Moderate multilevel degenerative disease with mild to moderate neural foraminal narrowing noted a t L2-L3. 3. Calcific atherosclerotic disease. All CT scans are performed using dose optimization techniques as appropriate to the performed exam an d include at least one of the following: Automated exposure control, adjustment of the mA and/or kV according t o size, and the use of iterative reconstruction technique.
--- NOTE | 2021-10-14 11:19 | CT ---
EXAM: CT abdomen with and without contrast. CT pelvis with and without contrast. HISTORY: Back pain. Pyelonephritis. COMPARISON: 04/09/2021. TECHNIQUE: Multiple axial images of the abdomen and pelvis were obtained prior to and following intr avenous administration of 75 mL Omnipaque 350, low osmolar. Images reformatted in the sagittal and c oronal plane. FINDINGS: Small pericardial effusion. Lung bases are clear. Degenerative changes present throughout the spine. Liver, gallbladder, pancreas, spleen, adrenal glands are normal. There is mild bilateral pelviectasi s. No ureterectasis. No calcified urinary tract stones. Symmetric renal enhancement. No perinephr ic inflammation. Urinary bladder not well distended although wall may be mildly thickened. Small hiatal hernia. No bowel obstruction or acute inflammation. Appendix normal. Uterus demonstrates normal contour. Clips in the abdomen and pelvis. Atherosclerotic calcifications . No free fluid, free air or lymphadenopathy. IMPRESSION: 1. Nonspecific bilateral renal pelviectasis without ureterectasis or obstructing stone. 2. Possible mild cystitis. All CT scans are performed using dose optimization techniques as appropriate to the performed exam an d include at least one of the following: Automated exposure control, adjustment of the mA and/or kV according t o size, and the use of iterative reconstruction technique.
--- NOTE | 2021-10-14 11:46 | PN ---
DATE OF SERVICE: 10/12/21 SUBJECTIVE: 75 year old white female hospitalized with acute pyelonephritis, back pain. Her condition seems to have improved some. She is feeling better. Still back muscle spasms are moderate to severe at times. She is getting IV Toradol and steroids. Discontinue Clonazepam and put her on Valium 5mg twice a day for muscle spams. REVIEW OF SYSTEMS: CONSTITUTIONAL: No night sweats. No fatigue, malaise, lethargy. No fever or chills. HEENT: Eyes: No visual changes. No eye pain. No eye discharge. ENT: No runny nose. No epistaxis. No sinus pain. No sore throat. No odynophagia. No congestion. RESPIRATORY: No cough, no congestion. No hemoptysis. No shortness of breath. CARDIOVASCULAR: No angina symptoms. No CHF symptoms. No atypical chest pain for CAD. No palpitations. No PND. No orthopnea. GASTROINTESTINAL: No abdominal pain. No nausea or vomiting. No diarrhea or constipation. No hematemesis. No hematochezia. Appetite has improved GENITOURINARY: No urgency. No frequency. No dysuria. No hematuria. No obstructive symptoms. No discharge. No pain. No significant abnormal bleeding. MUSCULOSKELETAL: No musculoskeletal pain; no joint swelling. Back muscle spasms still there. NEUROLOGICAL: No headache. No neck pain. No syncope. No seizures. No dizziness. PSYCHIATRIC: Not anxious. No depression. No suicidal thoughts. No homicidal thoughts. SKIN: No rash. No lesions. No wounds. ENDOCRINE: No unexplained weight loss. No weight gain. HEMATOLOGIC/LYMPHATIC: No anemia. No purpura. No petechiae. No prolonged or excessive bleeding. No palpable lymph nodes. PHYSICAL EXAMINATION: VITAL SIGNS: Temperature 97.4, pulse 50, respiratory rate 18, blood pressure 143/72 and pulse ox 96%. HEENT: Head normocephalic, atraumatic. Eyes: Extraocular muscles are intact. Pupils are equal, round and reactive to light and accommodation. Ears: No lesions. Nose appeared normal. Throat: No exudate or erythema. NECK: Supple. No JVD, no carotid bruit. No lymphadenopathy or thyromegaly. LUNGS: Decreased breath sounds but clear to auscultation. Percussion note normal. Chest symmetrical. HEART: S1, S2, no S3. No murmurs. No cyanosis or clubbing. No ascites. Pulses: Dorsalis pedis and posterior tibial pulses +1 to +2 bilaterally. ABDOMEN: Soft. Nontender. Bowel sounds active. No CVA tenderness. No mass felt. EXTREMITIES: No edema. Full range of motion of all extremities, equal. NEUROLOGIC: No focal deficit. Cranial nerves II through XII are grossly intact. No headache. No double vision. SKIN: Not dry. Intact. Turgor - normal. LYMPHATIC: No palpable lymph nodes/no lymphedema. MUSCULOSKELETAL: Normal joints with no swelling. Muscle tone is normal. LABS: Hgb 13.3, hct 40, WBC 9,700 normal differential, creatinine 0.8, BUN 15, potassium 3.9. ASSESSMENT: 1. Acute pyelonephritis 2. Severe back muscle spasms with severe DJD of the spine 3. Bradyarrhythmias 4. Dyslipidemia 5. Depression PLAN: 1. Discontinue Clonazepam and put her on Valium 2. Continue Toradol and steroids. 3. Continue Rocephin 4. Continue the rest of the medications as before 5. IV fluids to be continued CONDITION: Improving some. TIME SPENT: More than 30 minutes. Plan and coordination of the patient's care discussed in the presence of nurse. TODD
--- NOTE | 2021-10-14 13:12 | PN ---
DATE OF SERVICE: 10/13/21 SUBJECTIVE: 75 year old white female hospitalized with acute pyelonephritis, severe back muscle spasm, lower DJD of the spine. The patient's condition has improved. She says that the back muscle spasms are much better. Valium has helped her along with Toradol and steroids. REVIEW OF SYSTEMS: CONSTITUTIONAL: No night sweats. No fatigue, malaise, lethargy. No fever or chills. HEENT: Eyes: No visual changes. No eye pain. No eye discharge. ENT: No runny nose. No epistaxis. No sinus pain. No sore throat. No odynophagia. No congestion. RESPIRATORY: No cough, no congestion. No hemoptysis. No shortness of breath. CARDIOVASCULAR: No angina symptoms. No CHF symptoms. No atypical chest pain for CAD. No palpitations. No PND. No orthopnea. GASTROINTESTINAL: No abdominal pain. No nausea or vomiting. No diarrhea or constipation. No hematemesis. No hematochezia. GENITOURINARY: No urgency. No frequency. No dysuria. No hematuria. No obstructive symptoms. No discharge. No pain. No significant abnormal bleeding. MUSCULOSKELETAL: No joint swelling. Less back pain. NEUROLOGICAL: No headache. No neck pain. No syncope. No seizures. No dizziness. PSYCHIATRIC: Not anxious. No depression. No suicidal thoughts. No homicidal thoughts. SKIN: No rash. No lesions. No wounds. ENDOCRINE: No unexplained weight loss. No weight gain. HEMATOLOGIC/LYMPHATIC: No anemia. No purpura. No petechiae. No prolonged or excessive bleeding. No palpable lymph nodes. PHYSICAL EXAMINATION: VITAL SIGNS: Temperature 97.3,pulse 50, respiratory rate 16, blood pressure 168/79, pulse ox 99%. HEENT: Head normocephalic, atraumatic. Eyes: Extraocular muscles are intact. Pupils are equal, round and reactive to light and accommodation. Ears: No lesions. Nose appeared normal. Throat: No exudate or erythema. NECK: Supple. No JVD, no carotid bruit. No lymphadenopathy or thyromegaly. LUNGS:Decreased breath sounds but clear to auscultation. Percussion note normal. Chest symmetrical. HEART: S1, S2, no S3. No murmurs. No cyanosis or clubbing. No ascites. Pulses: Dorsalis pedis and posterior tibial pulses +1 to +2 bilaterally. ABDOMEN: Soft. Nontender. Bowel sounds active. No CVA tenderness. No mass felt. EXTREMITIES: No edema. Full range of motion of all extremities, equal. NEUROLOGIC: No focal deficit. Cranial nerves II through XII are grossly intact. No headache. No double vision. SKIN: Not dry. Intact. Turgor - normal. LYMPHATIC: No palpable lymph nodes/no lymphedema. MUSCULOSKELETAL: Normal joints with no swelling. Muscle tone is normal. LABS: Hgb 13.3, hct 39, WBC 9,200 normal differential, creatinine 0.8, BUN 16, potassium 3 ASSESSMENT: 1. Acute pyelonephritis seems to be resolving 2. Bradyarrhythmias asymptomatic 3. Muscle spasm with DJD of the spine 4. Hypokalemia with Potassium 3 PLAN: 1. Continue Rocephin 2. Continue Valium along with Toradol and steroids 3. Will given K-tab 20meq twice a day TIME SPENT: More than 30 minutes. Plan and coordination of the patient's care discussed in the presence of nurse. TODD
[2021-10-14] MEDS ORDERED: VALIUM PO PRN (14:41)
--- NOTE | 2021-10-14 15:04 | RS.PTINEVL ---
Subjective - Patient information Date of Evaluation: 10/14/21 Date of Arrival on Unit: 10/11/21 Usual Living Arrangement: With son Home Environment: House Medical History Comments:: Arthritisk, Dysrhythmia, GERD, HTN, Hx of hernia repair Subjective Information/ Patient Comments:: Reports no known injury to low back. States she has a UTI. Patient reports back pain, especially with movement. States sitting is the worst. States she got up yesterday and was able to walk to the bathroom, but today she can hardly move. States she did get up to the bathroom a few minutes ago. States being on her feet is not bad. She denies radiating symptoms into the LE. She agrees to try heat and Estim to the low back to calm muscle spasms. 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 Current Equipment Used at Home: N/A Pain Assessement - Location Lower Back Soft Tissue Intensity: 5 Pain Behavior: Guarding Pain Aggravating Factors: Changing Position, Sitting Pain Alleviating Factors: Inactivity Interventions - Objective Patient Orientation: Person, Place, Time, Situation Range of Motion - ROM Right Upper Extremity AROM: WFL's Left Upper Extremity AROM: WFL's Right Lower Extremity AROM: WFL's Left Lower Extremity AROM: WFL's Muscle Strength - Muscle Strength Comments:: No weakness noted to LE's. Sensation - Sensation Right Lower Extremity Sensation: Intact/Normal Left Lower Extremity Sensation: Intact/Normal Functional Mobility - Safety Awareness Safety Awareness: Good ARTHUR INDEX SCORE: NA Treatment with Modalities - Modalities performed Electrical Stim Unattended Treatment Time: 20 mins Type: HVGS Method Applied: 4 large pads Intensity: 185 crossed current at lumbar region Patient Position: Right Sidelying Treatment time - Time with patient Length of Evaluation: 12 Total treatment time: 12 Assessment - Assessment Problem List:: Decreased level of function, Pain limits previous level of function Rehab Potential: Good Further Therapy Indicated?: Yes Candidate for Swing Bed for Therapy Services?: No Evaluation Complexity: HISTORY: Low, EXAM OF BODY SYSTEMS: Low, CLINICAL PRESENTATION: Low, CLINICAL DECISION MAKING: Low Patient's Goal(s): Her goal is to get relief of back pain. Plan Plan of Care: Therapeutic EX, Therapeutic Activity, Self-Care/Home Management Modalities: Hot Pack, Cold Pack/Cryotherapy, Ultrasound, Ultrasound Combination, Electrical Stimulation Frequency of Treatment: 1-2 X day, as tolerated Duration of Treatment: 2-3 days Anticipated Discharge Destination: Home Treatment Diagnosis (ICD 10 Codes): M54.50 Has the Physician been added for Co-signature?: Yes
[2021-10-14] MEDS: NORCO 5-325 PO PRN (18:18)
[2021-10-14] MEDS: ZANAFLEX PO SCH (21:00)
[2021-10-15 05:35] LABS: BASOPHILS % (AUTO) 0.2 % (0.0-3.0); EOSINOPHILS # (AUTO) 0.1 K/ul (0.0-0.7); EOSINOPHILS % (AUTO) 1.1 % (0.0-7.0); HEMATOCRIT 39.9 % (37.0-47.0); HEMOGLOBIN 13.4 g/dl (12.0-16.0); IMMATURE GRANULOCYTE % (AUTO) 0.2 % (0.0-5.0); LYMPHOCYTES # (AUTO) 2.5 K/uL (0.60-3.4); LYMPHOCYTES % (AUTO) 26.2 (10.0-50.0); MEAN CORPUSCULAR HEMOGLOBIN 30.5 pg (27.0-31.0); MEAN CORPUSCULAR HGB CONC 33.6 (31.8-35.4); MEAN CORPUSCULAR VOLUME 90.7 fl (81.0-99.0); MONOCYTES # (AUTO) 0.6 K/uL (0.4-2.0); MONOCYTES % (AUTO) 6.5 (0-10); NEUTROPHILS # (AUTO) 6.4 K/ul (2.0-6.9); NEUTROPHILS % (AUTO) 65.8 % (42.2-75.2); PLATELET COUNT 242 10^3/uL (140-440); RDW COEFFICIENT OF VARIATION 12.8 % (11.6-14.8); WHITE BLOOD COUNT 9.67 K/ul (4.6-10.2)
[2021-10-15 05:51] LABS: ALANINE AMINOTRANSFERASE 18.9 U/L (0-35); ALBUMIN 3.43 g/dL (3.5-5.0); ALKALINE PHOSPHATASE 84.2 U/L (53-141); ASPARTATE AMINO TRANSFERASE 35.2 U/L (14-36); BILIRUBIN,TOTAL 0.66 mg/dL (0.2-1.3); CALCIUM 9.2 mg/dL (8.4-10.2); CARBON DIOXIDE 30.8 mmol/L (22-30.0); CHLORIDE 106.3 mmol/L (98-107); CREATININE 0.87 mg/dL (0.60-1.30); POTASSIUM 3.82 mmol/L (3.5-5.1); SODIUM 138.2 mmol/L (134.5-145); TOTAL PROTEIN 6.46 g/dL (6.3-8.2)
[2021-10-15] MEDS: PRILOSEC PO SCH (05:55)
[2021-10-15] MEDS: PROTONIX PO SCH ×2 (05:55→16:08)
[2021-10-15] MEDS: ZANAFLEX PO SCH ×3 (05:55→20:12)
[2021-10-15] MEDS: TORADOL IVP PRN (06:01)
--- NOTE | 2021-10-15 09:02 | PCM.PROG ---
Attending Provider: ATTENDING PROVIDER: Dr. MARKUS ESTRELLA This patient is seen with Emily Archer, Nurse Practitioner. DATE OF SERVICE: 10/15/21 SUBJECTIVE: This 75 year old /WHITE F was hospitalized 10/11/21. The patient worked with physical therapy yesterday. Blood pressure has improved slightly. Will continue to monitor with addition of Norvasc. Still not able to move much and requires assistance. REVIEW OF SYSTEMS: CONSTITUTIONAL: No night sweats. No fatigue, malaise, lethargy. No fever or chills. Weakness. HEENT: Eyes: No visual changes. No eye pain. No eye discharge. ENT: No runny nose. No epistaxis. No sinus pain. No odynophagia. No congestion. RESPIRATORY: No cough, no congestion. No hemoptysis. No shortness of breath. CARDIOVASCULAR: No angina symptoms. No CHF symptoms. No atypical chest pain for CAD. No palpitations. No orthopnea.. GASTROINTESTINAL: No abdominal pain. No nausea or vomiting. No diarrhea or constipation. No hematemesis. No hematochezia. GENITOURINARY: No urgency. No frequency. No dysuria. No hematuria. No obstructive symptoms. No discharge. No pain. No significant abnormal bleeding. MUSCULOSKELETAL: Back pain; no joint swelling. NEUROLOGICAL: Awake, alert, oriented to time, place and person. No headache. No neck pain. No syncope. No seizures. No dizziness. PSYCHIATRIC: Not anxious. No depression. No suicidal thoughts. No homicidal thoughts. SKIN: No rash. No lesions. No wounds. ENDOCRINE: No unexplained weight loss. No weight gain. HEMATOLOGIC/LYMPHATIC: No anemia. No purpura. No petechiae. No prolonged or excessive bleeding. No palpable lymph nodes. PHYSICAL EXAMINATION: GENERAL: The patient is awake, alert and oriented, lying in bed in no distress. VITAL SIGNS: Temperature 97.6 F, Pulse 48, Respiratory Rate 18, BP 163/76, Pulse Ox 98% HEENT: Head normocephalic, atraumatic. Eyes: Extraocular muscles are intact. Pupils are equal, round and reactive to light and accommodation. Ears: No lesions. Nose appeared normal. Throat: No exudate or erythema. NECK: Supple. No JVD, no carotid bruit. No lymphadenopathy or thyromegaly. LUNGS: Diminished breath sounds. Clear to auscultation. Percussion note normal. Chest symmetrical. HEART: S1, S2, no S3. No murmurs. No cyanosis or clubbing. No ascites. Pulses: Dorsalis pedis and posterior tibial pulses +1 to +2 both sides. ABDOMEN: Soft. Non-tender. Bowel sounds active. No CVA tenderness. No mass felt. EXTREMITIES: No edema. Full range of motion of all extremities, equal. NEUROLOGIC: No focal deficit. Cranial nerves II through XII are grossly intact. No headache. No double vision. SKIN: Not dry. Intact. Turgor-normal. LYMPHATIC: No palpable lymph nodes/no lymphedema. MUSCULOSKELETAL: Normal joints with no swelling. Muscle tone is normal. LAB REVIEW: 10/15/21 05:15 10/15/21 05:15 10/15/21 05:15: Sodium 138.2, Potassium 3.82, Chloride 106.3, Carbon Dioxide 30.8 H, Anion Gap 4.92, BUN 16.0, Creatinine 0.87, Estimated GFR (MDRD) 64.00, BUN/Creatinine Ratio 18.39, Glucose 96.0, Calcium 9.20, Total Bilirubin 0.66, AST 35.2, ALT 18.9, Alkaline Phosphatase 84.2, Total Protein 6.46, Albumin 3.43 L, Globulin 3.03, Albumin/Globulin Ratio 1.13 10/15/21 05:15: WBC 9.67, RBC 4.40, Hgb 13.4, Hct 39.9, MCV 90.7, MCH 30.5, MCHC 33.6, RDW Coeff of Liz 12.8, Plt Count 242, Immature Gran % (Auto) 0.2, Neut % (Auto) 65.8, Lymph % (Auto) 26.2, [place] % (Auto) 6.5, Eos % (Auto) 1.1, Baso % (Auto) 0.2, Neut # (Auto) 6.4, Lymph # (Auto) 2.5, [place] # (Auto) 0.6, Eos # (Auto) 0.1, Baso # (Auto) 0.0, Immature Gran # (Auto) 0.0 10/12/21 05:03: C-Reactive Prot, Quant 33 H ASSESSMENT: Please see below. 1. Acute low back pain 2. UTI, positive Klebsiella 3. Hypertension 4. Lumbar muscle spasms 5. Generalized weakness 6. Asymptomatic bradyarrhythmia PLAN: 1. Will continue IV antibiotics 2. Culture from [facility] 10/09 reviewed 3. Will continue Norvasc and scheduled Zanaflex 4. Physical therapy to see today 5. The patient has been constipated, we will add Colace 100mg BID and half bottle mag citrate Plan and coordination of the patient's care discussed in the presence of Tassel Clipper and nurse. SCRIBED BY: Krystal GAFFNEY scribed while in presence of service performed by Dr. Estrella/Emily Archer APRN on 10/15/21 ([id number])
[2021-10-15] MEDS: CELEXA PO SCH (09:34)
[2021-10-15] MEDS: COZAAR PO SCH (09:34)
[2021-10-15] MEDS: K-DUR PO SCH ×2 (09:34→16:08)
[2021-10-15] MEDS: NORVASC PO SCH ×2 (09:34→20:13)
[2021-10-15] MEDS: ASPIRIN CHEWABLE PO SCH (09:34)
[2021-10-15] MEDS: LIPITOR PO SCH (09:34)
[2021-10-15] MEDS: DECADRON IVP SCH (10:07)
[2021-10-15] MEDS ORDERED: CITRATE OF MAGNESIA PO ONE (12:02)
[2021-10-15] MEDS: NORCO 5-325 PO PRN ×2 (12:59→21:39)
[2021-10-15] MEDS: COLACE PO SCH ×2 (13:09→20:12)
[2021-10-15] MEDS: ROCEPHIN 1 GM/50 ML D5W 1 GM/50 ML BAG IV SCH (13:44)
[2021-10-16] MEDS: TORADOL IVP PRN ×2 (00:24→18:23)
[2021-10-16 05:19] LABS: BASOPHILS % (AUTO) 0.3 % (0.0-3.0); EOSINOPHILS # (AUTO) 0.1 K/ul (0.0-0.7); EOSINOPHILS % (AUTO) 0.6 % (0.0-7.0); HEMATOCRIT 40.6 % (37.0-47.0); HEMOGLOBIN 13.8 g/dl (12.0-16.0); IMMATURE GRANULOCYTE % (AUTO) 0.3 % (0.0-5.0); LYMPHOCYTES # (AUTO) 2.5 K/uL (0.60-3.4); MEAN CORPUSCULAR HEMOGLOBIN 30.8 pg (27.0-31.0); MEAN CORPUSCULAR VOLUME 90.6 fl (81.0-99.0); MONOCYTES # (AUTO) 0.8 K/uL (0.4-2.0); NEUTROPHILS % (AUTO) 69.8 % (42.2-75.2); PLATELET COUNT 248 10^3/uL (140-440); RDW COEFFICIENT OF VARIATION 12.8 % (11.6-14.8); RED BLOOD COUNT 4.48 10^6/ul (4.20-5.40); WHITE BLOOD COUNT 11.51 K/ul (4.6-10.2)
[2021-10-16 05:31] LABS: ALBUMIN 3.78 g/dL (3.5-5.0); ALKALINE PHOSPHATASE 90.1 U/L (53-141); ASPARTATE AMINO TRANSFERASE 35.5 U/L (14-36); BILIRUBIN,TOTAL 0.56 mg/dL (0.2-1.3); BLOOD UREA NITROGEN 21.6 mg/dL (7-17); CALCIUM 9.26 mg/dL (8.4-10.2); CHLORIDE 102.2 mmol/L (98-107); CREATININE 1.04 mg/dL (0.60-1.30); GLUCOSE 106.3 mg/dL (74-106); POTASSIUM 3.8 mmol/L (3.5-5.1); SODIUM 137.3 mmol/L (134.5-145); TOTAL PROTEIN 7.02 g/dL (6.3-8.2)
[2021-10-16] MEDS: PRILOSEC PO SCH (05:48)
[2021-10-16] MEDS: PROTONIX PO SCH ×2 (05:48→16:32)
[2021-10-16] MEDS: ZANAFLEX PO SCH ×3 (05:48→20:33)
[2021-10-16] MEDS: COZAAR PO SCH (08:33)
[2021-10-16] MEDS: COLACE PO SCH ×2 (08:33→20:33)
[2021-10-16] MEDS: CELEXA PO SCH (08:33)
[2021-10-16] MEDS: K-DUR PO SCH ×2 (08:33→16:32)
[2021-10-16] MEDS: ASPIRIN CHEWABLE PO SCH (08:33)
[2021-10-16] MEDS: LIPITOR PO SCH (08:33)
[2021-10-16] MEDS: NORVASC PO SCH ×2 (08:34→20:33)
[2021-10-16] MEDS: ROCEPHIN 1 GM/50 ML D5W 1 GM/50 ML BAG IV SCH (08:34)
[2021-10-16] MEDS: NORCO 5-325 PO PRN ×2 (09:13→20:33)
[2021-10-16] MEDS: DECADRON IVP SCH (09:13)
[2021-10-17] MEDS: ZANAFLEX PO SCH ×3 (05:10→20:17)
[2021-10-17 05:19] LABS: BASOPHILS % (AUTO) 0.4 % (0.0-3.0); EOSINOPHILS # (AUTO) 0.1 K/ul (0.0-0.7); EOSINOPHILS % (AUTO) 1.3 % (0.0-7.0); HEMATOCRIT 38.9 % (37.0-47.0); HEMOGLOBIN 13.3 g/dl (12.0-16.0); IMMATURE GRANULOCYTE % (AUTO) 0.3 % (0.0-5.0); LYMPHOCYTES # (AUTO) 2.8 K/uL (0.60-3.4); LYMPHOCYTES % (AUTO) 26.6 (10.0-50.0); MEAN CORPUSCULAR HEMOGLOBIN 31.2 pg (27.0-31.0); MEAN CORPUSCULAR HGB CONC 34.2 (31.8-35.4); MEAN CORPUSCULAR VOLUME 91.3 fl (81.0-99.0); MONOCYTES # (AUTO) 0.8 K/uL (0.4-2.0); MONOCYTES % (AUTO) 7.9 (0-10); NEUTROPHILS # (AUTO) 6.8 K/ul (2.0-6.9); NEUTROPHILS % (AUTO) 63.5 % (42.2-75.2); PLATELET COUNT 249 10^3/uL (140-440); RDW COEFFICIENT OF VARIATION 13.1 % (11.6-14.8); RED BLOOD COUNT 4.26 10^6/ul (4.20-5.40); WHITE BLOOD COUNT 10.67 K/ul (4.6-10.2)
[2021-10-17 05:31] LABS: ALANINE AMINOTRANSFERASE 18.1 U/L (0-35); ALBUMIN 3.55 g/dL (3.5-5.0); ALKALINE PHOSPHATASE 83.6 U/L (53-141); ASPARTATE AMINO TRANSFERASE 33.6 U/L (14-36); BILIRUBIN,TOTAL 0.63 mg/dL (0.2-1.3); BLOOD UREA NITROGEN 26.7 mg/dL (7-17); CALCIUM 9.1 mg/dL (8.4-10.2); CARBON DIOXIDE 27.3 mmol/L (22-30.0); CHLORIDE 105.2 mmol/L (98-107); CREATININE 1.01 mg/dL (0.60-1.30); POTASSIUM 3.95 mmol/L (3.5-5.1); SODIUM 136.8 mmol/L (134.5-145); TOTAL PROTEIN 6.71 g/dL (6.3-8.2)
[2021-10-17] MEDS: PROTONIX PO SCH ×2 (06:11→16:23)
[2021-10-17] MEDS: TORADOL IVP PRN (06:29)
[2021-10-17] MEDS ORDERED: NORCO 5-325 PO SCH (09:30)
[2021-10-17] MEDS ORDERED: TORADOL IVP PRN (09:30)
[2021-10-17] MEDS ORDERED: TORADOL IVP SCH (09:30)
[2021-10-17] MEDS: DECADRON IVP SCH (09:34)
[2021-10-17] MEDS: COLACE PO SCH ×2 (09:34→20:17)
[2021-10-17] MEDS: LIPITOR PO SCH (09:34)
[2021-10-17] MEDS: NORVASC PO SCH ×2 (09:35→20:17)
[2021-10-17] MEDS: COZAAR PO SCH (09:35)
[2021-10-17] MEDS: DICLOFENAC SODIUM PO SCH (09:35)
[2021-10-17] MEDS: ASPIRIN CHEWABLE PO SCH (09:35)
[2021-10-17] MEDS: CELEXA PO SCH (09:35)
[2021-10-17] MEDS: K-DUR PO SCH ×2 (09:35→16:23)
[2021-10-17] MEDS: OMNICEF PO SCH ×2 (09:35→20:17)
[2021-10-17] MEDS: NORCO 5-325 PO PRN ×2 (09:36→16:23)
[2021-10-17] MEDS: ROCEPHIN 1 GM/50 ML D5W 1 GM/50 ML BAG IV SCH (10:13)
--- NOTE | 2021-10-17 10:26 | PCM.PROG ---
Attending Provider: ATTENDING PROVIDER: Dr. MARKUS ESTRELLA This patient is seen with Emily Archer, Nurse Practitioner. DATE OF SERVICE: 10/17/21 SUBJECTIVE: This 75 year old /WHITE F was hospitalized 10/11/21. States that pain is improving each day. Still with muscle spasms with movement. Feels that physical therapy is helping. REVIEW OF SYSTEMS: CONSTITUTIONAL: No night sweats. No fatigue, malaise, lethargy. No fever or chills. Weakness. HEENT: Eyes: No visual changes. No eye pain. No eye discharge. ENT: No runny nose. No epistaxis. No sinus pain. No odynophagia. No congestion. RESPIRATORY: No cough, no congestion. No hemoptysis. No shortness of breath. CARDIOVASCULAR: No angina symptoms. No CHF symptoms. No atypical chest pain for CAD. No palpitations. No orthopnea.. GASTROINTESTINAL: No abdominal pain. No nausea or vomiting. No diarrhea or constipation. No hematemesis. No hematochezia. GENITOURINARY: No urgency. No frequency. No dysuria. No hematuria. No obstructive symptoms. No discharge. No pain. No significant abnormal bleeding. MUSCULOSKELETAL: No musculoskeletal pain; no joint swelling. Low back pain. Muscle spasms. NEUROLOGICAL: Awake, alert, oriented to time, place and person. No headache. No neck pain. No syncope. No seizures. No dizziness. PSYCHIATRIC: Not anxious. No depression. No suicidal thoughts. No homicidal thoughts. SKIN: No rash. No lesions. No wounds. ENDOCRINE: No unexplained weight loss. No weight gain. HEMATOLOGIC/LYMPHATIC: No anemia. No purpura. No petechiae. No prolonged or excessive bleeding. No palpable lymph nodes. PHYSICAL EXAMINATION: GENERAL: The patient is awake, alert and oriented, lying in bed in no distress. VITAL SIGNS: Temperature 97.9 F, Pulse 45, Respiratory Rate 18, BP 156/81, Pulse Ox 100% HEENT: Head normocephalic, atraumatic. Eyes: Extraocular muscles are intact. Pupils are equal, round and reactive to light and accommodation. Ears: No lesions. Nose appeared normal. Throat: No exudate or erythema. NECK: Supple. No JVD, no carotid bruit. No lymphadenopathy or thyromegaly. LUNGS: Clear to auscultation. Percussion note normal. Chest symmetrical. HEART: S1, S2, no S3. No murmurs. No cyanosis or clubbing. No ascites. Pulses: Dorsalis pedis and posterior tibial pulses +1 to +2 both sides. ABDOMEN: Soft. Non-tender. Bowel sounds active. No CVA tenderness. No mass felt. EXTREMITIES: No edema. Full range of motion of all extremities, equal. NEUROLOGIC: No focal deficit. Cranial nerves II through XII are grossly intact. No headache. No double vision. SKIN: Not dry. Intact. Turgor-normal. LYMPHATIC: No palpable lymph nodes/no lymphedema. MUSCULOSKELETAL: Normal joints with no swelling. Muscle tone is normal. Palpable tenderness across lower back. LAB REVIEW: 10/17/21 04:57 10/17/21 04:57 10/17/21 04:57: Sodium 136.8, Potassium 3.95, Chloride 105.2, Carbon Dioxide 27.3, Anion Gap 8.25, BUN 26.7 H, Creatinine 1.01, Estimated GFR (MDRD) 54.00, BUN/Creatinine Ratio 26.43, Glucose 92.0, Calcium 9.10, Total Bilirubin 0.63, AST 33.6, ALT 18.1, Alkaline Phosphatase 83.6, Total Protein 6.71, Albumin 3.55, Globulin 3.16, Albumin/Globulin Ratio 1.12 10/17/21 04:57: WBC 10.67 H, RBC 4.26, Hgb 13.3, Hct 38.9, MCV 91.3, MCH 31.2 H, MCHC 34.2, RDW Coeff of Liz 13.1, Plt Count 249, Immature Gran % (Auto) 0.3, Neut % (Auto) 63.5, Lymph % (Auto) 26.6, [place] % (Auto) 7.9, Eos % (Auto) 1.3, Baso % (Auto) 0.4, Neut # (Auto) 6.8, Lymph # (Auto) 2.8, [place] # (Auto) 0.8, Eos # (Auto) 0.1, Baso # (Auto) 0.0, Immature Gran # (Auto) 0.0 ASSESSMENT: Please see below. 1. Acute low back pain 2. Lumbar muscle spasms with radiculopathy 3. UTI positive Klebsiella 4. Hypertension 5. Asymptomatic bradycardia PLAN: 1. Miralax one cap twice a day 2. Toradol BID PRN 3. Diclofenac 75mg po daily with food 4. Stop Rocephin 5. Omnicef 300mg bid Plan and coordination of the patient's care discussed in the presence of Wardrobe Consultant and nurse. SCRIBED BY: GONZALEZ GODWIN Access Services Representative scribed while in presence of service performed by Dr. Estrella/Emily Archer APRN on 10/17/21 ([id number])
--- NOTE | 2021-10-17 11:24 | PN ---
DATE OF SERVICE: 10/14/21 SUBJECTIVE: The patient was seen and examined with the Nurse Practitioner on 10/14/21. Condition has been improving. She is eating better. Still has back muscle spasms. Repeat scans will be done. The patient's cardiovascular status is stable. TIME SPENT: More than 30 minutes. Plan and coordination of the patient's care discussed in the presence of nurse. TODD
--- NOTE | 2021-10-17 13:28 | PN ---
DATE OF SERVICE: 10/15/21 SUBJECTIVE: The patient was seen and examined with the Nurse Practitioner. An echocardiogram done by me showed LVH, mild enlarged LA cavity. The patient is WPW with bradyarrhythmias. TIME SPENT: More than 30 minutes. Plan and coordination of the patient's care discussed in the presence of nurse. TODD
[2021-10-18] MEDS: NORCO 5-325 PO PRN ×2 (02:20→11:05)
[2021-10-18 05:13] LABS: BASOPHILS % (AUTO) 0.2 % (0.0-3.0); EOSINOPHILS # (AUTO) 0.2 K/ul (0.0-0.7); EOSINOPHILS % (AUTO) 1.3 % (0.0-7.0); HEMATOCRIT 40.6 % (37.0-47.0); HEMOGLOBIN 13.5 g/dl (12.0-16.0); IMMATURE GRANULOCYTE # (AUTO) 0.1 (0.0-1.0); IMMATURE GRANULOCYTE % (AUTO) 0.4 % (0.0-5.0); LYMPHOCYTES # (AUTO) 2.6 K/uL (0.60-3.4); LYMPHOCYTES % (AUTO) 20.5 (10.0-50.0); MEAN CORPUSCULAR HEMOGLOBIN 30.8 pg (27.0-31.0); MEAN CORPUSCULAR HGB CONC 33.3 (31.8-35.4); MEAN CORPUSCULAR VOLUME 92.7 fl (81.0-99.0); MONOCYTES # (AUTO) 0.6 K/uL (0.4-2.0); MONOCYTES % (AUTO) 4.7 (0-10); NEUTROPHILS # (AUTO) 9.2 K/ul (2.0-6.9); NEUTROPHILS % (AUTO) 72.9 % (42.2-75.2); PLATELET COUNT 252 10^3/uL (140-440); RDW COEFFICIENT OF VARIATION 13.2 % (11.6-14.8); RED BLOOD COUNT 4.38 10^6/ul (4.20-5.40); WHITE BLOOD COUNT 12.64 K/ul (4.6-10.2)
[2021-10-18 05:27] LABS: ALANINE AMINOTRANSFERASE 20.5 U/L (0-35); ALBUMIN 3.76 g/dL (3.5-5.0); ALKALINE PHOSPHATASE 89.8 U/L (53-141); ASPARTATE AMINO TRANSFERASE 33.2 U/L (14-36); BILIRUBIN,TOTAL 0.54 mg/dL (0.2-1.3); BLOOD UREA NITROGEN 18.9 mg/dL (7-17); CALCIUM 9.33 mg/dL (8.4-10.2); CARBON DIOXIDE 26.9 mmol/L (22-30.0); CHLORIDE 102.7 mmol/L (98-107); CREATININE 0.91 mg/dL (0.60-1.30); GLUCOSE 139.8 mg/dL (74-106); POTASSIUM 3.74 mmol/L (3.5-5.1); SODIUM 136.2 mmol/L (134.5-145); TOTAL PROTEIN 6.89 g/dL (6.3-8.2)
[2021-10-18] MEDS: PROTONIX PO SCH (05:47)
[2021-10-18] MEDS: ZANAFLEX PO SCH ×2 (05:47→13:31)
[2021-10-18] MEDS: CELEXA PO SCH (09:07)
[2021-10-18] MEDS: COLACE PO SCH (09:07)
[2021-10-18] MEDS: DICLOFENAC SODIUM PO SCH (09:07)
[2021-10-18] MEDS: OMNICEF PO SCH (09:07)
[2021-10-18] MEDS: LIPITOR PO SCH (09:07)
[2021-10-18] MEDS: ASPIRIN CHEWABLE PO SCH (09:07)
[2021-10-18] MEDS: NORVASC PO SCH (09:08)
[2021-10-18] MEDS: COZAAR PO SCH (09:08)
[2021-10-18] MEDS: K-DUR PO SCH (09:08)
--- NOTE | 2021-10-18 09:25 | PCM.PROG ---
Attending Provider: ATTENDING PROVIDER: Dr. MARKUS ESTRELLA DATE OF SERVICE: 10/18/21 SUBJECTIVE: This 75 year old /WHITE F was hospitalized 10/11/21 with acute pyelonephritis and back pain. Condition has improved. Pain is more or less controlled with small amount of pain medications. REVIEW OF SYSTEMS: CONSTITUTIONAL: No night sweats. No fatigue, malaise, lethargy. No fever or chills. HEENT: Eyes: No visual changes. No eye pain. No eye discharge. ENT: No runny nose. No epistaxis. No sinus pain. No odynophagia. No congestion. RESPIRATORY: No cough, no congestion. No hemoptysis. No shortness of breath. CARDIOVASCULAR: No angina symptoms. No CHF symptoms. No atypical chest pain for CAD. No palpitations. No orthopnea.. GASTROINTESTINAL: No abdominal pain. No nausea or vomiting. No diarrhea or constipation. No hematemesis. No hematochezia. GENITOURINARY: No urgency. No frequency. No dysuria. No hematuria. No obstructive symptoms. No discharge. No pain. No significant abnormal bleeding. MUSCULOSKELETAL: No musculoskeletal pain; no joint swelling. Low back pain. NEUROLOGICAL: Awake, alert, oriented to time, place and person. No headache. No neck pain. No syncope. No seizures. No dizziness. PSYCHIATRIC: Not anxious. No depression. No suicidal thoughts. No homicidal thoughts. SKIN: No rash. No lesions. No wounds. ENDOCRINE: No unexplained weight loss. No weight gain. HEMATOLOGIC/LYMPHATIC: No anemia. No purpura. No petechiae. No prolonged or excessive bleeding. No palpable lymph nodes. PHYSICAL EXAMINATION: GENERAL: The patient is awake, alert and oriented, lying in bed in no distress. VITAL SIGNS: Temperature 97.9 F, Pulse 47, Respiratory Rate 16, BP 151/77, Pulse Ox 98% HEENT: Head normocephalic, atraumatic. Eyes: Extraocular muscles are intact. Pupils are equal, round and reactive to light and accommodation. Ears: No lesions. Nose appeared normal. Throat: No exudate or erythema. NECK: Supple. No JVD, no carotid bruit. No lymphadenopathy or thyromegaly. LUNGS: Clear to auscultation. Percussion note normal. Chest symmetrical. HEART: S1, S2, no S3. No murmurs. No cyanosis or clubbing. No ascites. Pulses: Dorsalis pedis and posterior tibial pulses +1 to +2 both sides. ABDOMEN: Soft. Non-tender. Bowel sounds active. No CVA tenderness. No mass felt. EXTREMITIES: No edema. Full range of motion of all extremities, equal. NEUROLOGIC: No focal deficit. Cranial nerves II through XII are grossly intact. No headache, no double vision or headache. SKIN: Warm and dry. Intact. Turgor-normal. LYMPHATIC: No palpable lymph nodes/no lymphedema. MUSCULOSKELETAL: Normal joints with no swelling. Muscle tone is normal. LAB REVIEW: 10/18/21 04:55 10/18/21 04:55 10/18/21 04:55: Sodium 136.2, Potassium 3.74, Chloride 102.7, Carbon Dioxide 26.9, Anion Gap 10.34, BUN 18.9 H, Creatinine 0.91, Estimated GFR (MDRD) 61.00, BUN/Creatinine Ratio 20.76, Glucose 139.8 H, Calcium 9.33, Total Bilirubin 0.54, AST 33.2, ALT 20.5, Alkaline Phosphatase 89.8, Total Protein 6.89, Albumin 3.76, Globulin 3.13, Albumin/Globulin Ratio 1.20 10/18/21 04:55: WBC 12.64 H, RBC 4.38, Hgb 13.5, Hct 40.6, MCV 92.7, MCH 30.8, MCHC 33.3, RDW Coeff of Liz 13.2, Plt Count 252, Immature Gran % (Auto) 0.4, Neut % (Auto) 72.9, Lymph % (Auto) 20.5, [place] % (Auto) 4.7, Eos % (Auto) 1.3, Baso % (Auto) 0.2, Neut # (Auto) 9.2 H, Lymph # (Auto) 2.6, [place] # (Auto) 0.6, Eos # (Auto) 0.2, Baso # (Auto) 0.0, Immature Gran # (Auto) 0.1 ASSESSMENT: Please see below. 1. Back muscle spasms 2. DJD spine 3. Pyelonephritis 4. Hypokalemia PLAN: 1. Discharge home 2. Prednisone tapering dose 3. Discontinue Potassium 4. Norvasc 5mg at night 5. Tramadol 50mg BID PRN 6. Discontinue Valium 7. Restart Clonazepam 8. Omnicef 300mg PO BID 9. The patient is advised to do back exercises and stretch 10. Decline neurosurgical consult 11. The patient is to see me back on coming Thursday on . Advised to rest and patient is going to be staying with the daughter for the time being. Plan and coordination of the patient's care discussed in the presence of Erection Shop Supervisor and nurse. SCRIBED BY: Krystal GAFFNEY scribed while in presence of service performed by Dr. MARKUS ESTRELLA on 10/18/21 ([id number])
[2021-10-18] MEDS: DECADRON IVP SCH (09:42)
--- NOTE | 2021-10-18 10:48 | ECHO2D ---
Date of Exam: 10/15/2021 Ordering Physician: DR. MARKUS ESTRELLA Room #: [id number] Reason for Echo: BRADYCARDIA, SOB M-Mode Normal Adult Results LV Dimensions Normal Adult Results AoV Opening excursions >1.6 >1.6 LVEDD-base- 3.5-5.8 4.2 Ao root dimensions 2.0-3.7 2.9 LVESD-base- 3.1-4.6 L. Atrium dimensions 1.9-3.8 4.2 Post. Wall thickness 0.8-1.1 1.1 IV septum (thickness) 0.7-1.2 1.1 Post. Wall excursion 0.72-1.3 NORMAL Septal motion NORMAL Systolic motion R. Ventricular cavity 1.5-2.0 NORMAL LVEF 60% 55% Paradoxical septal wall motion NORMAL 2-D : 2-D M Mode Echocardiogram was performed using apical four chamber and left parasternal long and short axis views. CALCIFIC MITRAL VALVE ANNULUS Tricuspid and aortic valves appear to be normal. Contractility of the left ventricle seems to be normal, so is the cavity size. ENLARGED LEFT ATRIAL CAVITY SIZE. Aortic root appears to be normal. There is no pericardial effusion. There is no thrombus noted in the left ventricle or left atrial cavity. M-MODE: MV: CALCIFIC MITRAL VALVE ANNULUS AV: NORMAL TV: NORMAL PV: CHAMBER SIZE: ENLARGED LEFT ATRIAL CAVITY WALL MOTION: NORMAL PERICARDIUM: NORMAL INTERPRETATION: 1. ENLARGED LEFT ATRIAL CAVITY 2. CALCIFIC MITRAL VALVE ANNULUS 3. NORMAL VALVES 4. NORMAL LEFT VENTRICLE CONTRACTILITY MTDD
[2021-10-18 13:30] VITALS: BP 120/72; TEMP 97.7
--- NOTE | 2021-10-21 13:17 | PN ---
DATE OF SERVICE: 10/16/21 SUBJECTIVE: 75 year old white female hospitalized with pyelonephritis and severe back pain. The patient's back pain is a better. She is able to go to the bathroom on her own. REVIEW OF SYSTEMS: CONSTITUTIONAL: No night sweats. No fatigue, malaise, lethargy. No fever or chills. HEENT: Eyes: No visual changes. No eye pain. No eye discharge. ENT: No runny nose. No epistaxis. No sinus pain. No sore throat. No odynophagia. No congestion. RESPIRATORY: No cough, no congestion. No hemoptysis. No shortness of breath. CARDIOVASCULAR: No angina symptoms. No CHF symptoms. No atypical chest pain for CAD. No palpitations. No PND. No orthopnea. GASTROINTESTINAL: No abdominal pain. No nausea or vomiting. No diarrhea or constipation. No hematemesis. No hematochezia. Appetite has improved. GENITOURINARY: No urgency. No frequency. No dysuria. No hematuria. No obstructive symptoms. No discharge. No pain. No significant abnormal bleeding. MUSCULOSKELETAL: No musculoskeletal pain; no joint swelling. NEUROLOGICAL: No headache. No neck pain. No syncope. No seizures. No dizziness. PSYCHIATRIC: Not anxious. No depression. No suicidal thoughts. No homicidal thoughts. SKIN: No rash. No lesions. No wounds. ENDOCRINE: No unexplained weight loss. No weight gain. HEMATOLOGIC/LYMPHATIC: No anemia. No purpura. No petechiae. No prolonged or excessive bleeding. No palpable lymph nodes. PHYSICAL EXAMINATION: VITAL SIGNS: Temperature 97.4, pulse 50m, respiratory rate 16, blood pressure 148/82 and pulse ox 98%. HEENT: Head normocephalic, atraumatic. Eyes: Extraocular muscles are intact. Pupils are equal, round and reactive to light and accommodation. Ears: No lesions. Nose appeared normal. Throat: No exudate or erythema. NECK: Supple. No JVD, no carotid bruit. No lymphadenopathy or thyromegaly. LUNGS: Decreased breath sounds but clear to auscultation. Percussion note normal. Chest symmetrical. HEART: S1, S2, no S3. No murmurs. No cyanosis or clubbing. No ascites. Pulses: Dorsalis pedis and posterior tibial pulses +1 to +2 bilaterally. ABDOMEN: Soft. Nontender. Bowel sounds active. No CVA tenderness. No mass felt. EXTREMITIES: No edema. Full range of motion of all extremities, equal. NEUROLOGIC: No focal deficit. Cranial nerves II through XII are grossly intact. No headache. No double vision. SKIN: Not dry. Intact. Turgor - normal. LYMPHATIC: No palpable lymph nodes/no lymphedema. MUSCULOSKELETAL: Normal joints with no swelling. Muscle tone is normal. LABS: Hgb 13.8, hct 40, WBC 11,500 normal differential, creatinine 1, BUN 21, potassium 3.8. ASSESSMENT: 1. Acute pyelonephritis seems to be resolving 2. Severe back pain with back muscle spasms seems to be resolving . PLAN: 1. Continue to encourage the patient to do back exercises 2. Up and about 3. Continue antibiotics. TIME SPENT: More than 30 minutes. Plan and coordination of the patient's care discussed in the presence of nurse. TODD
--- NOTE | 2021-10-21 14:14 | PN ---
DATE OF SERVICE: 10/17/21 SUBJECTIVE: The patient was seen and examined with the Nurse Practitioner. The patient's condition is improving. She is walking around. The pain is much less. On a scale of 1-10 it is rated as 3. Cardiovascular status is stable. No symptoms of UTI. TIME SPENT: More than 30 minutes. Plan and coordination of the patient's care discussed in the presence of nurse. TODD
--- NOTE | 2021-10-25 14:52 | DS ---
DATE OF SERVICE: 10/18/21 FINAL DIAGNOSIS: 1. Acute urinary tract infection 2. Severe lumbar back muscle spasm with DJD of the spine 3. Generalized osteoarthritis 4. Depression 5. Dyslipidemia 6. Hypertension DISCHARGE INSTRUCTIONS: Discharge home. Do not return to work for at least 10 days. Continue medications as listed per nursing reconciliation. Followup appointment with Dr. Loomis/Emily Archer APRN/Loc Chilel APRN on ThursdayOctober 22 at 10:45am. CODE STATUS: Full Code. MEDICATIONS AT DISCHARGE: Atorvastatin Celexa Klonopin Losartan Protonix 40mg Zanaflex NEW PRESCRIPTIONS: Aspirin to be taken as before. Ultram 50mg BID daily Protonix 40mg PO daily for 7 days after that QAM Diclofenac 75mg PO daily for 7 days with meal Prednisone 10mg BID for 5 days and after that one a day for 5 days. DIET INSTRUCTIONS: Continue same diet at home. ACTIVITY: Gradually resume activity as tolerated. Stretch 30minutes after activity LABS: Hgb 13.5, hct 40, WBC 12,000 normal differential. HOSPITAL COURSE: 75 year old white female hospitalized with acute pyelonephritis and also severe back pain. The patient has been suffering from this medical condition for past few days. She has been to [facility] ER where she was given Omnicef and was sent home with some pain that was so severe that she was unable to walk. She was given in the hospital some Valium along with steroids. Back muscle relaxed and the patient's condition improved. She was able to walk and the pain was bareable. Discharged on tapering dose of Prednisone and advised to continue her Tramadol as before. She was given Omnicef at the time of discharge to be taken 300mg twice a day for 5 days. She was advised to drink a lot of fluids. Diclofenac was also given. Antiinflammatory side effects were discussed with her, Protonix to be taken twice a day as long as she takes Diclofenac. Back exercises were discussed with the patient. Cardiovascular status was stable throughout the stay in the hospital. 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 She has declined to be seen by meat smoker. Periodically she will have to undergo Holter Monitoring. CONDITION: Stable. TIME SPENT: More than 60 minutes. [facility]
--- NOTE | 2021-10-25 14:53 | PN ---
10/11/21: Level 5 10/12/21: Intermediate 10/13/21: Intermediate 10/14/21: Intermediate 10/15/21: Intermediate 10/16/21: Intermediate 10/17/21: Intermediate 10/18/21: D as in discharge MTDD
== END 2021-10-18 15:30 | disposition home or self-care (01) | DRG 552 ==
LOC: ED 10:41 → MEDSURG A 15:13
PROVIDERS: ADMIT Internal Medicine; ATTEND Internal Medicine
DX: Z96.0 Presence of urogenital implants; M19.90 Unspecified osteoarthritis, unspecified site; M62.830 Muscle spasm of back; Z20.822 Contact with and (suspected) exposure to COVID-19; B96.1 Klebsiella pneumoniae [K. pneumoniae] as the cause of diseases classified elsewhere; N18.2 Chronic kidney disease, stage 2 (mild); I10 Essential (primary) hypertension; M51.36 Other intervertebral disc degeneration, lumbar region; Z51.81 Encounter for therapeutic drug level monitoring; I65.22 Occlusion and stenosis of left carotid artery; E78.5 Hyperlipidemia, unspecified; N39.0 Urinary tract infection, site not specified; Z79.899 Other long term (current) drug therapy; E86.0 Dehydration; F32.A Depression, unspecified